=== PATIENT | male | born 1995 | race Asian ===

== ENCOUNTER 2019-07-02 23:39 | Emergency (ER) | payer SELFPAY ==
[~2019-07-02] VITALS: Ht 165.1 cm; Wt 56.7 kg
[2019-07-02 23:44] VITALS: BP 120/77; Ht 165.1 cm; Wt 56.7 kg
== END 2019-07-03 00:50 | disposition left against medical advice (07) ==
LOC: ED 23:39
DX: Z53.21 Procedure and treatment not carried out due to patient leaving prior to being seen by health care provider (principal)